=== PATIENT | male | born 1955 | race Hispanic/Latino ===

== ENCOUNTER 2019-09-15 07:13 | Day surgery (SDC) | payer MEDICARE ==
[2019-09-14 10:29] VITALS: BMI 30.5
[~2019-09-15 07:13] MED LIST: EPINEPHrine 0.3 MG, Dextrose 50% 3 ML in Ophthalmic Irrigation Solution 500 ML IV SCH; Fentanyl 100 MCG/2 ML VIAL ONE; Midazolam HCl 2 mg/2 ml Vial ONE
[2019-09-15] MEDS ORDERED: Phenylephrine 2.5% Ophth Soln 5 ML BOT ONE (07:28)
[2019-09-15] MEDS ORDERED: Cyclopentolate 1% Opth Drop 2 ML BOT ONE (07:28)
--- NOTE | 2019-09-15 12:24 | OP ---
DATE OF PROCEDURE: 09/15/2019 PREOPERATIVE DIAGNOSES: 1. Vitreous hemorrhage. 2. Post diabetic retinopathy. POSTOPERATIVE DIAGNOSES: 1. Vitreous hemorrhage. 2. Post diabetic retinopathy. PROCEDURES PERFORMED: Pars plana vitrectomy, membrane peel, panretinal photocoagulation, left eye. ANESTHESIA: Local with monitored anesthesia care. PROCEDURE IN DETAIL: The patient was identified in the preoperative holding area. Appropriate informed consent for the planned surgical procedure on the left eye had been obtained. The patient was transported to the operative suite. Appropriate cardiopulmonary monitoring was established. Local anesthesia was obtained using retrobulbar modified Van Lint lid block using 50:50 mixture of 4% lidocaine and 0.75% bupivacaine. The patient was prepped and draped in the usual sterile manner for ophthalmic surgery in the left eye. Lid speculum was placed in the left eye. A 25-gauge trocar was placed in the conjunctiva and sclera superotemporally, inferotemporally, and supranasally. Infusion line was placed inferotemporally. Light pipe vitreous cutter was inserted in the eye. Core vitrectomy was performed. Proliferations were removed from the retinal surface in multiple locations and dissected into the periphery. Bleeding was controlled with direct application of endolaser and panretinal photocoagulation was placed on non-macular areas of the retina. No further bleeding was identified. Trocars were removed. Eye was noted to retain pressure well. Retrobulbar Kenalog and subconjunctival Ancef were placed. Antibiotic ointment was placed. Eye was patched and shielded. The patient was taken to postoperative recovery unit in good condition, having suffered no immediate perioperative complications. The patient was instructed to keep patch and shield on, avoid lifting and bending, followup appointment with Dr. Walters. Job ID: [id number]
[2019-09-15] MEDS ORDERED: Lidocaine 1% PF 5 ML VIAL ONE (14:20)
[2019-09-15] MEDS ORDERED: CEFAZOLIN 1 GM VIAL ONE (14:20)
[2019-09-15] MEDS ORDERED: Lidocaine 4% PF 5 ML AMP ONE (14:20)
[2019-09-15] MEDS ORDERED: Bupivacaine PF 0.75% SDV 10 ML ONE (14:20)
[2019-09-15] MEDS ORDERED: Triamcinolone 40 MG/ML VIAL ONE (14:20)
[2019-09-15] MEDS ORDERED: Maxitrol 0.1% Opth Oint 3.5 GM TUBE ONE (14:20)
== END 2019-09-15 11:12 | disposition home or self-care (01) ==
LOC: SDC 07:13
PROVIDERS: ATTEND Ophthalmology Retina Specialist
PROC: 08T53ZZ Resection of Left Vitreous, Percutaneous Approach (ICD-10-PCS; principal; 2019-09-15)
PROC: 08QF3ZZ Repair Left Retina, Percutaneous Approach (ICD-10-PCS; 2019-09-15)
DX: H43.11 Vitreous hemorrhage, right eye (principal); E10.319 Type 1 diabetes mellitus with unspecified diabetic retinopathy without macular edema; I12.9 Hypertensive chronic kidney disease with stage 1 through stage 4 chronic kidney disease, or unspecified chronic kidney disease; E10.22 Type 1 diabetes mellitus with diabetic chronic kidney disease; N18.9 Chronic kidney disease, unspecified; Z87.891 Personal history of nicotine dependence
CPT/HCPCS: J0171; J0690; J2001; J2250; J3010; J3301; J3490